=== PATIENT | male | born 1940 | race Caucasian/White ===

== ENCOUNTER 2018-11-10 14:25 | Inpatient (IN) ==
[2018-11-10] MEDS ORDERED: DUONEB (A & A) INH ONE (15:06)
--- NOTE | 2018-11-10 15:20 | Diag Imaging Result Doc PS360 ---
EXAM: CHEST-1 VIEW - 11/10/2018 HISTORY: SEPSIS TECHNIQUE: Portable chest COMPARISON: 01/08/2012 FINDINGS: Heart size appears within normal limits. The projection is somewhat lordotic. There is questionable infiltrate at the medial left base. The remainder of the lungs appear essentially clear. There is no pleural effusion or pneumothorax identified. IMPRESSION: Questionable infiltrate at medial left base. Electronically signed by Elan William 11/10/2018 3:18 PM
[2018-11-10 16:00] LABS: BASO# 0.01 X1000 (0.0-0.2); BASO% 0.1 % (0.0-0.8); HEMATOCRIT 38.1 % (42.0-52.0); HEMOGLOBIN 12.8 g/dL (14.0-18.0); LYMPH# 0.75 X1000 (1.2-3.4); LYMPH% 10.8 % (20.5-51.1); MCH 31.2 PG (27-31); MCHC 33.6 g/dL (33-37); MCV 92.9 FL (81-99); MONO# 0.61 X1000 (0.11-0.59); MONO% 8.8 % (1.7-9.3); MPV 10.6 FL (7.4-10.4); NEUT# 5.55 X1000 (1.4-6.5); NEUT% 80.3 % (42.2-75.2); PLT 162 X1000 (130-400); RDW 13.5 % (11.5-14.5); WBC 6.92 X1000 (4.8-10.8)
[2018-11-10] MEDS ORDERED: ROCEPHIN 1 GM in NS 50 ML IV ONE (16:07)
[2018-11-10 16:30] LABS: ALB/GLOB RATIO 1.3; ALBUMIN 3.5 g/dL (3.5-5.0); CALCIUM 8.2 mg/dL (8.8-10.2); CREATININE 1.3 mg/dL (0.7-1.2); MAGNESIUM 1.9 mg/dL (1.5-2.7); POTASSIUM 4.5 mmol/L (3.5-5.1); TOTAL BILIRUBIN 1.51 mg/dL (0.20-1.00); TOTAL PROTEIN 6.1 g/dL (6.3-8.3)
[2018-11-10 16:45] LABS: INR 4.69; PROTIME 47.3 Seconds (11.0-16.0)
[2018-11-10 17:51] LABS: URINE SOURCE CLEAN CATCH
[2018-11-10] MEDS ORDERED: TYLENOL PO PRN (18:00)
[2018-11-10] MEDS ORDERED: ULTRAM PO PRN (18:00)
[2018-11-10] MEDS ORDERED: MELATONIN PO PRN (18:00)
[2018-11-10 18:02] LABS: BILIRUBIN URINE SMALL (NEGATIVE); BLOOD URINE NEGATIVE (NEGATIVE); COLOR YELLOW; GLUCOSE URINE TRACE mg/dL (NEGATIVE); KETONE URINE TRACE mg/dL (NEGATIVE); LEUKOCYTES URINE NEGATIVE (NEGATIVE); NITRITE URINE NEGATIVE (NEGATIVE); PH URINE 5.5; PROTEIN URINE 200 mg/dL (NEGATIVE); TURBIDITY URINE HAZY (CLEAR); UROBILINOGEN URINE 4 mg/dL (NORMAL)
[2018-11-10 18:12] LABS: URINE BACTERIA NEGATIVE /HPF; URINE RBC <10 /HPF (<10); URINE WBC <10 /HPF (<10)
[2018-11-10 18:14] LABS: UR EPITHELIAL CELLS <10 /HPF (<10)
[2018-11-10 18:20] LABS: URINE CASTS GRANULAR PRESENT; URINE CRYSTALS NONE SEEN; URINE YEAST NONE SEEN
--- NOTE | 2018-11-10 18:41 | HISTORY AND PHYSICAL ---
PRIMARY CARE PHYSICIAN: Dr. Thomas Hagen. CHIEF COMPLAINT: Cough, congestion, and shortness of breath. HISTORY OF PRESENT ILLNESS: A 78-year-old white male with a complicated past medical history presents for evaluation of above-mentioned symptoms. Pertinent history of present illness began in mid September. At that time, patient developed acute onset cough and congestion. He attempted Mucinex and "cold and flu" [id number]-uhm-[id number] medications with modest improvement. Because of persistent symptoms and associated shortness of breath and wheezing, patient was seen in my office on 10/22/2018. At that time, patient was diagnosed with an upper respiratory tract infection with acute bronchospasm. He was treated with levofloxacin therapy and Medrol Dosepak. The patient states he did reasonably well while on medications. He achieved significant improvement, although not resolution of symptoms. The patient states after completing therapy, he did well until Sunday. At that time, he developed a return of significant symptoms. At that time, he complained of a cough productive of a purulent sputum, congestion, shortness of breath, wheezing, chills, and fever to 101. Patient again attempted Mucinex DM and an [id number]-[id number] "cold and sinus" medication without improvement. Because of his persistent symptoms, he presented to the emergency department this afternoon. Upon arrival, full evaluation was pursued. The patient was found to be hypoxic on room air with oxygen saturation in the 80s. Chest x-ray suggested a questionable infiltrate at the medial left base. Patient will be admitted to the hospital for full evaluation and management of community-acquired pneumonia in an immunocompromised host. PAST MEDICAL HISTORY: 1. Abnormal electrocardiogram with longstanding first-degree AV block. 2. Chronic mild anemia with a slight elevation of MCV. 3. Mild carotid artery disease. 4. Factor V Leiden deficiency treated with lifelong Coumadin. 5. Diverticulosis. 6. Diabetes. 7. Longstanding lower extremity edema treated with as-needed Lasix. 8. Hypertension. 9. Hypertriglyceridemia. 10. Nonalcoholic fatty liver disease. 11. Hyperlipidemia. 12. Long-term anticoagulant secondary to factor V Leiden deficiency. 13. Obstructive sleep apnea. 14. Overweight. 15. History of a pericardial effusion in 2009 which resolved spontaneously. 16. Hypogonadism. 17. Rheumatoid arthritis treated with Humira and methotrexate. 18. Insomnia. 19. History of a deep venous thrombosis. CURRENT MEDICATIONS: 1. Coenzyme Q10 100 mg on Sunday, Sunday, and Sunday. 2. Coumadin 5 mg on Sunday, , and Sunday and 10 mg on Sunday, Sunday, Sunday, and Sunday evenings. 3. Crestor 40 mg at bedtime. 4. Folic acid 1 mg daily. 5. Humira weekly per Dr. Pena. 6. Lasix 40 mg 1/2 to 1 tablet daily as needed. 7. Losartan 100 mg daily. 8. Melatonin 5 mg at bedtime as needed. 9. Metformin ER 500 mg daily. 10. Methotrexate 2.5 mg 4 tablets on . 11. Multivitamin on Sunday, Sunday, and Sunday. 12. Naproxen 220 mg twice daily as needed. 13. Tramadol 50 mg every 6 hours as needed. 14. Vitamin B12 1000 mg twice weekly. ALLERGIES: The patient states he is allergic to fish which causes shortness of breath and asthma and lisinopril which causes a cough. SOCIAL HISTORY: The patient is a former smoker having smoked less than 1 pack per day for 16 years. He stopped in 1975. He has approximately 3 alcoholic drinks per week. He denies illicit drug use. He is retired from banking but continues to work in [employer]. He enjoys golf and tennis. He exercises intermittently. FAMILY HISTORY: Patient's father passed at age 62 secondary to complications of pancreatic cancer. Patient's mother passed at age 87 secondary to complications of pancreatic cancer. REVIEW OF SYSTEMS: A 12 point review of systems was performed. Pertinent positives and negatives are noted in history present illness. PHYSICAL EXAMINATION: VITAL SIGNS: Temperature 98.4 degrees, heart rate 81 to 121, respirations 14 to 27, blood pressure 111 to 133 over 59 to 66. GENERAL: Well nourished, well developed, no acute distress. HEENT: Normocephalic, atraumatic. Pupils equal, round, reactive to light. Extraocular muscles intact. Sclerae anicteric. [place] conjunctivae. Oral and nasopharynx clear without exudate. NECK: Supple. No lymphadenopathy. No thyromegaly. No bruits auscultated. CARDIOVASCULAR: Regular rate and rhythm. No significant murmurs, rubs, or gallops. PULMONARY: Rhonchi and wheezing throughout bilateral lung vivar, worse at the bases. Compromised air movement. ABDOMEN: Soft, nontender, nondistended. Positive bowel sounds. EXTREMITIES: Moves all extremities well. No significant clubbing or cyanosis. Trace lower extremity edema bilaterally. NEUROLOGIC: Cranial nerves 2-12 grossly intact. Motor and sensory grossly intact. PSYCHOLOGIC: Appropriate. LABORATORY DATA: White blood cell count 6.92, hemoglobin 12.8, hematocrit 38.1, platelet count 162,000. PT 47.3, INR is 4.69, PTT is 93.0. Sodium 132, potassium 4.3, chloride 98, bicarb 24, BUN 17, creatinine 1.3, glucose 188, calcium 8.2, magnesium 1.9, total bilirubin 1.51, total protein 6.1, albumin 3.5, alkaline phosphatase 55, AST 19, ALT 17, CK total 138, troponin less than 0.010. Chest x-ray revealed a questionable infiltrate at the medial left base. ASSESSMENT AND PLAN: A 78-year-old white male with a complicated past medical history as noted presents for evaluation of cough, congestion, and shortness of breath. Chest x-ray confirms an underlying pneumonia. In the setting of an immunocompromised host being treated for rheumatoid arthritis with methotrexate and Humira, aggressive intervention is deemed warranted. The patient will be admitted to the hospital for full evaluation and management of this condition. 1. Admit to General Medicine. 2. Community acquired pneumonia-we will check a sputum culture and blood cultures. We will initiate Rocephin and doxycycline therapy. We will encourage incentive spirometry and aspiration precautions. We will treat patient's bronchospasm as described below. 3. Acute bronchospasm-this is compounding his shortness of breath. This likely is a consequence of his underlying pneumonia. Patient will be treated with DuoNeb every 4 hours while awake. We will initiate IV steroids. We will follow this closely as well. 4. Hypoxemia-as above, this is likely a consequence of above diagnoses. We will continue oxygen per protocol. I anticipate patient will rapidly reverse this. 5. Anticoagulation-patient is supratherapeutic. We will hold Coumadin for now. We will recheck a PT and INR in the a.m. 6. Diabetes-the patient is currently being treated with metformin therapy. With the addition of steroids, patient's blood sugars will likely increase. We will start the patient on sliding scale insulin. We will follow this as well. 7. Hypertension-we will continue patient on his home regimen. 8. Hyperlipidemia-we will continue patient on Crestor therapy. 9. Elevated bilirubin-I suspect this is reactive. In the setting of a family history of pancreatic cancer, this will need to be repeated and followed up. 10. Rheumatoid arthritis-the patient is treated with methotrexate and Humira as an outpatient. We will remain aware. His symptoms are currently controlled. 11. Fluid, electrolytes, nutrition. We will monitor electrolytes. Saline lock IV. Diabetic diet. 12. Prophylaxis. The patient is supratherapeutic on Coumadin. cc: Thomas Hagen MD
[2018-11-10] MEDS: DOXYCYCLINE 100 MG in NS 250 ML IV SCH (18:48)
[2018-11-10] MEDS: SOLU-MEDROL IV SCH (18:48)
[2018-11-10] MEDS: DUONEB (A & A) INH SCH ×2 (19:35→23:10)
[2018-11-10] MEDS ORDERED: PATIENT'S OWN MED OPH SCH ×2 (21:00)
--- NOTE | 2018-11-10 21:04 | PROVIDER DOCUMENTATION ---
This chart was entered by Lorena Ramos Scribe, acting as scribe for Patel Do MD. HPI-Respiratory General - General Chief Complaint: Cough Stated Complaint: CHEST CONGESTION/SOB Time Seen by Provider: 11/10/18 14:40 Source: patient Allergies/Adverse Reactions: Patient Allergies Allergy/AdvReac Type Severity Reaction Status Date / Time Fish Containing Products Allergy ANAPHYLAXIS Verified 11/10/18 16:01 fish derived Allergy ANAPHYLAXIS Verified 11/10/18 16:01 fish oil Allergy ANAPHYLAXIS Verified 11/10/18 16:01 Home Medications: Home Medication List Medication Instructions Recorded Confirmed Last Taken Type Adalimumab [Humira Pen] 40 mg IJ DIRECTED 11/10/18 11/10/18 11/09/18 History Losartan Potassium 100 mg PO DAILY 11/10/18 11/10/18 11/09/18 History Metformin E.r. [Glucophage Xr] 500 mg PO DAILY 11/10/18 11/10/18 11/09/18 History Methotrexate 4 tab PO DIRECTED 11/10/18 11/10/18 11/09/18 History Moxifloxacin HCl [Moxifloxacin] 1 drp OPH BID 11/10/18 11/10/18 11/09/18 History Nepafenac [Ilevro] 1 drp OPH BID 11/10/18 11/10/18 11/10/18 History Rosuvastatin Calcium 40 mg PO HS 11/10/18 11/10/18 11/09/18 History Tramadol [Ultram] 50 mg PO Q6H PRN PRN 11/10/18 11/10/18 11/10/18 History Warfarin [Coumadin] 5 mg PO DIRECTED 11/10/18 11/10/18 11/08/18 History Warfarin [Coumadin] 10 mg PO DIRECTED 11/10/18 11/10/18 11/09/18 History - History of Present Illness-Resp Nature of Presenting Problem: 78 y/o male presents to ED with SOB, green productive cough, and chest tightness onset 1 week ago. Pt reports he saw PCP and has taken the prescribed zithromax without relief from his symptoms. Pt is alert and oriented. Quality of Pain: reports: tightness Severity in ED: reports: mild Onset/Duration: reports: 1 week ago Timing: reports: still present Context: reports: other Exposure: reports: unknown cause Cough Quality/Degree: reports: productive cough Episode Frequency: no prior episodes Current Respiratory Medication Therapy: Initiated see nurses note Modifying Factors: improves with: nothing Associated Symptoms: reports: chest pain/soreness, cough, shortness of breath, short of breath Similar Symptoms Previously?: No Recently seen or treated by another doctor?: No Review of Systems - Adult - REVIEW OF SYSTEMS - ADULT Constitutional: reports: no symptoms reported Ears, Nose, Mouth & Throat: reports: no symptoms reported Cardiovascular: reports: no symptoms reported Respiratory: reports: see HPI Gastrointestinal: reports: no symptoms reported Genitourinary: reports: no symptoms reported Musculoskeletal: reports: no symptoms reported Past History - Adult - PAST MEDICAL HISTORY-ADULT Review of Records: reports: Old Records Reviewed, Nursing Assessment Review, Medications Reviewed Major Childhood Illnesses: reports: denies history - PRIOR SURGERIES/PROCEDURES Surgical/Procedure History: reports: none - IMMUNIZATION STATUS Childhood Immunizations: See Nurse Assessment Flu Vaccine: See Nurse Assessment - FAMILY HISTORY Family History: reviewed, not pertinent - SOCIAL HISTORY Smoking: non-smoker Substance Use: none/never Alcohol Use Frequency: never Living Situation: family Physical Exam-General - PHYSICAL EXAM-ADULT Initial Vital Signs Reviewed: Yes - CONSTITUTIONAL General Appearance: appears well, alert, mild distress - EYES Eyes: PERRL/EOMI - HEAD, EARS, NOSE, MOUTH & THROAT HENMT: normocephalic/atraumatic, moist mucous membranes, normal ENT inspection - NECK Neck: non-tender, full range of motion - RESPIRATORY Respiratory: chest non-tender, normal breath sounds, wheezing (expiratory wheezing bilaterally), increased rate (mild), other (coughing during exam) - CARDIOVASCULAR Cardiovascular: tachycardia - GASTROINTESTINAL (ABDOMEN) Abdominal Exam: normal bowel sounds, non tender, soft - MUSCULOSKELETAL Back Exam: normal inspection, no CVA tenderness Extremity: normal range of motion, non-tender, normal gait - SKIN Integumentary: normal color, warm/dry - NEUROLOGIC Neurologic: grossly normal - PSYCHIATRIC Psych/Mental Status: normal thought content, normal thought process Progress - PLAN OF CARE/RESULTS Progress/Plan/Lab Results: Vital Signs - 8 hr 11/10/18 14:31 11/10/18 14:44 11/10/18 14:46 Temperature 98.4 F Pulse Rate 121 H 105 H Respiratory Rate 22 17 Blood Pressure 111/59 133/66 O2 Sat by Pulse Oximetry 86 L 90 L 91 L 11/10/18 14:50 11/10/18 15:00 11/10/18 15:10 Temperature Pulse Rate 102 H 98 H 98 H Respiratory Rate 18 24 14 Blood Pressure O2 Sat by Pulse Oximetry 91 L 92 L 93 L 11/10/18 15:20 11/10/18 15:30 11/10/18 15:40 Temperature Pulse Rate 101 H 83 88 Respiratory Rate 27 H 13 21 Blood Pressure O2 Sat by Pulse Oximetry 92 L 92 L 89 L 11/10/18 15:47 11/10/18 15:50 11/10/18 16:00 Temperature Pulse Rate 94 H 89 81 Respiratory Rate 18 19 22 Blood Pressure O2 Sat by Pulse Oximetry 92 L 97 91 L 11/10/18 16:10 11/10/18 16:20 Temperature Pulse Rate 88 90 Respiratory Rate 20 14 Blood Pressure O2 Sat by Pulse Oximetry 92 L 92 L Laboratory Results - last 24 hr 11/10/18 11/10/18 11/10/18 15:35 15:35 15:35 WBC 6.92 RBC 4.10 L Hgb 12.8 L Hct 38.1 L MCV 92.9 MCH 31.2 H MCHC 33.6 RDW Std Deviation 13.5 Plt Count 162 MPV 10.6 H Immature Gran % (Auto) 0.0 Neut % (Auto) 80.3 H Lymph % (Auto) 10.8 L [place] % (Auto) 8.8 Eos % (Auto) 0.0 Baso % (Auto) 0.1 Immature Gran # (Auto) 0.00 Neut # (Auto) 5.55 Lymph # (Auto) 0.75 L [place] # (Auto) 0.61 H Eos # (Auto) 0.00 Baso # (Auto) 0.01 PT 47.3 H INR 4.69 PTT (Actin FS) 93.0 H Sodium 132 L Potassium 4.5 Chloride 98 Carbon Dioxide 24 L Anion Gap 10 BUN 17 Creatinine 1.3 H Estimated GFR/1.73 m2 54 BUN/Creatinine Ratio 13 Glucose 188 H Calculated Osmolality 271 Calcium 8.2 L Magnesium 1.9 Total Bilirubin 1.51 H AST 19 ALT 17 Alkaline Phosphatase 55 Creatine Kinase 138 Troponin T Total Protein 6.1 L Albumin 3.5 Globulin 2.6 Albumin/Globulin Ratio 1.3 Plasma Lactate 11/10/18 11/10/18 15:35 15:35 WBC RBC Hgb Hct MCV MCH MCHC RDW Std Deviation Plt Count MPV Immature Gran % (Auto) Neut % (Auto) Lymph % (Auto) [place] % (Auto) Eos % (Auto) Baso % (Auto) Immature Gran # (Auto) Neut # (Auto) Lymph # (Auto) [place] # (Auto) Eos # (Auto) Baso # (Auto) PT INR PTT (Actin FS) Sodium Potassium Chloride Carbon Dioxide Anion Gap BUN Creatinine Estimated GFR/1.73 m2 BUN/Creatinine Ratio Glucose Calculated Osmolality Calcium Magnesium Total Bilirubin AST ALT Alkaline Phosphatase Creatine Kinase Troponin T < 0.010 Total Protein Albumin Globulin Albumin/Globulin Ratio Plasma Lactate 2.1 Orders Category Date Time Status Admit - [facility] Routine AdmDCTranf 11/10/18 17:20 Active Cardiac Monitoring DIRECTED Care 11/10/18 14:48 Active IV Insertion ORDERED Care 11/10/18 14:48 Completed Notify MD of + Sepsis Screen Q 4-HR ASSESS Care 11/10/18 14:48 Active Notify Physician As Ordered Care 11/10/18 14:48 Active CHEST-1 VIEW [RAD] Stat Exams 11/10/18 14:48 Completed BLOOD CULTURE [BLDCUL] Stat Lab 11/10/18 15:35 Results CBC WITH DIFF [HEME] Stat Lab 11/10/18 15:35 Completed CK PROFILE [SP CHEM] Stat Lab 11/10/18 15:35 Completed COMPREHENSIVE METABOLIC PANEL [CHEM] Stat Lab 11/10/18 15:35 Completed LACTATE, PLASMA [CHEM] Lab 11/10/18 15:35 Completed LACTATE, PLASMA [CHEM] Lab 11/10/18 18:18 Completed LACTATE, PLASMA [CHEM] Lab 11/10/18 21:00 Ordered MAGNESIUM [CHEM] Stat Lab 11/10/18 15:35 Completed PROTIME WITH INR [COAG] Stat Lab 11/10/18 15:35 Completed PTT [COAG] Stat Lab 11/10/18 15:35 Completed TROPONIN T Stat Lab 11/10/18 15:35 Completed URINALYSIS W/POSS RFLX CULT [URINALYSIS] Stat Lab 11/10/18 17:45 Completed Albuterol 2.5MG/Ipratrop 0.5MG [Duoneb (A & A)] Med 11/10/18 15:06 Discontinued 6 ml INH NOW ONE CefTRIAXONE [Rocephin] 1 gm Med 11/10/18 16:07 Discontinued 0.9% Sodium Chloride Inj [Ns] 50 ml IV NOW Aerosol Treatments Routine Oth 11/10/18 15:06 Completed Aerosol Treatments Stat Oth 11/10/18 15:06 Completed Oxygen Device Stat Ot 11/10/18 14:48 Completed Transfer/Admit Order [TRANSFER] Routine Transfer 11/10/18 17:23 Completed PNEUMONIA WITH HYPOXIA FAILED OUTPATIENT TX, WILL ADMIT Result Diagrams: 11/10/18 15:35 11/10/18 15:35 - EKG 1 Time of EKG reading by physician:: 14:49 EKG Read and Signed by:: Patel Do EKG Interpretation (*Must complete 3 of following elements*): Abnormal Rate: 101 Rhythm: Sinus tach [place]: normal QRS: normal [place] Interval: normal ST Wave: normal - XRAY 1 XRAY Study: Chest Impression: Abnormal ([facility] [address] [facility], [address], [place] [address] Department of Imaging Patient: MARIBEL TENA Date: 11/10/18#: [id number] : 1940DM Status: PRE ERAcct#: [id number] Age/Sex: 78/MRoom/Bed: Loc: ED Ordering Physician: Wesley Nunn MD Family Physician: Thomas Hagen MD Reason for Procedure: SEPSIS Signed EXAM: CHEST-1 VIEW - 11/10/2018 HISTORY: SEPSIS TECHNIQUE: Portable chest COMPARISON: 01/08/2012 FINDINGS: Heart size appears within normal limits. The projection is somewhat lordotic. There is questionable infiltrate at the medial left base. The remainder of the lungs appear essentially clear. There is no pleural effusion or pneumothorax identified. IMPRESSION: Questionable infiltrate at medial left base. Electronically signed by Elan William 11/10/2018 3:18 PM 11/10/18 1518 Interpreting Physician: Elan William MD Dictated Date/Time: 11/10/18 1516 cc: Wesley Nunn MD; Thomas Hagen MD) - CONSULTS/PCP/HOSPITALIST Notification #1 *Consult/PCP/Hospitalist*: Dr. Hagen Time Discussed: 17:14 Reason/Comments: Pneumonia Consult Disposition: Admit Departure - Departure Date of Disposition Decision: 11/10/18 Time of Disposition Decision: 17:15 DIAGNOSIS: Pneumonia Qualifiers: Pneumonia type: due to unspecified organism Laterality: left Lung location: lower lobe of lung Qualified Code(s): J18.1 - Lobar pneumonia, unspecified organism Disposition: ADMITTED INPATIENT 09 Certified Medical Emergency: Emergent Condition: Stable - Critical Care Note This patient required my direct & personal management of CC.: No Attestation - Physician/ SONG Attestation Patient care was provided by Advanced Practice Provider:: No The physician spent face to face time with patient:: Yes Advanced Practice Provider documentation review:: Supervising physician onsite and consulted in the evaluation and care of this patient. The physician did have a face to face encounter with the patient. This chart was documented by the indicated scribe, (Lorena Ramos Scribe) and accurately reflects the services I performed and decisions made by me, Patel Kline MD, as attested by the provider's signature.
[2018-11-10] MEDS: HUMALOG SUBQ SCH (21:50)
[2018-11-10] MEDS: CRESTOR PO SCH (21:54)
[2018-11-11] MEDS: SOLU-MEDROL IV SCH ×2 (06:36→18:26)
[2018-11-11] MEDS: DOXYCYCLINE 100 MG in NS 250 ML IV SCH ×2 (06:36→18:23)
[2018-11-11] MEDS: HUMALOG SUBQ SCH ×5 (06:52→21:47)
[2018-11-11 07:13] LABS: INR 4.97; PROTIME 49.5 Seconds (11.0-16.0)
[2018-11-11] MEDS: DUONEB (A & A) INH SCH ×5 (07:47→23:10)
--- NOTE | 2018-11-11 08:10 | EKG Report ---
Test Performed on : 11/10/2018 2:48:59 PM Test Reason : ED. NO EKG ORDER FOR MUSE Blood Pressure : / mmHG Vent. Rate : 101 BPM Atrial Rate : 101 BPM P-R Int : 204 ms QRS Dur : 084 ms QT Int : 370 ms P-R-T Axes : 061 -09 038 degrees QTc Int : 479 ms Sinus tachycardia. Inferior infarct , age undetermined Abnormal ECG When compared with ECG of 08-JAN-2012 20:00, premature ventricular complexes. are no longer present Inferior infarct is now present Unconfirmed Result
[2018-11-11] MEDS: COZAAR PO SCH (08:59)
[2018-11-11] MEDS: GLUCOPHAGE XR PO SCH (08:59)
[2018-11-11] MEDS: FOLIC ACID PO SCH (08:59)
[2018-11-11] MEDS: MUCINEX DM PO SCH ×2 (10:23→21:47)
[2018-11-11] MEDS: ROCEPHIN 1 GM in NS 50 ML IV SCH ×2 (14:47→15:30)
[2018-11-11] MEDS: CRESTOR PO SCH (21:47)
[2018-11-12 06:33] LABS: INR 3.47; PROTIME 37.3 Seconds (11.0-16.0)
[2018-11-12] MEDS: DOXYCYCLINE 100 MG in NS 250 ML IV SCH ×2 (06:38→18:18)
[2018-11-12] MEDS: SOLU-MEDROL IV SCH ×2 (06:38→18:18)
[2018-11-12 06:49] LABS: HEMATOCRIT 35.9 % (42.0-52.0); HEMOGLOBIN 12.3 g/dL (14.0-18.0); LYMPH# 0.46 X1000 (1.2-3.4); LYMPH% 5.5 % (20.5-51.1); MCH 31.2 PG (27-31); MCHC 34.3 g/dL (33-37); MCV 91.1 FL (81-99); MONO# 0.12 X1000 (0.11-0.59); MONO% 1.4 % (1.7-9.3); MPV 10.8 FL (7.4-10.4); NEUT# 7.84 X1000 (1.4-6.5); NEUT% 93.1 % (42.2-75.2); PLT 220 X1000 (130-400); RBC 3.94 XMIL (4.7-6.1); RDW 13.1 % (11.5-14.5); WBC 8.42 X1000 (4.8-10.8)
[2018-11-12] MEDS: HUMALOG SUBQ SCH ×3 (06:57→16:55)
[2018-11-12 07:10] LABS: ALB/GLOB RATIO 0.8; ALBUMIN 2.9 g/dL (3.5-5.0); CALCIUM 8.7 mg/dL (8.8-10.2); CREATININE 1.5 mg/dL (0.7-1.2); POTASSIUM 4.5 mmol/L (3.5-5.1); TOTAL BILIRUBIN 0.5 mg/dL (0.20-1.00); TOTAL PROTEIN 6.4 g/dL (6.3-8.3)
[2018-11-12 07:22] LABS: BANDS 4 % (0-1); LYMPHS 8 % (21-51); MONO 1 % (1-9); SEGS 87 % (42-75)
[2018-11-12] MEDS: DUONEB (A & A) INH SCH ×3 (07:52→15:49)
[2018-11-12] MEDS: MUCINEX DM PO SCH (09:46)
[2018-11-12] MEDS: GLUCOPHAGE XR PO SCH (09:46)
[2018-11-12] MEDS: COZAAR PO SCH (09:46)
[2018-11-12] MEDS: FOLIC ACID PO SCH (09:46)
--- NOTE | 2018-11-12 10:10 | Diag Imaging Result Doc PS360 ---
CHEST-2 VIEWS - 11/12/2018 INDICATION: pneumonia COMPARISON: 11/10/2018 FINDINGS: There has been clearance in the right lower lobe, with much better visualization of the right hemidiaphragm. There is also improved visualization of the left hemidiaphragm suggesting improved aeration of the left lower lobe. Otherwise persistent ill-defined interstitial markings in the lung bases bilaterally. Heart size remains normal. No pneumothorax or pleural effusion. IMPRESSION: Improved aeration of both lower lobes. Persistent ill-defined interstitial infiltrates in the lung bases bilaterally, nonspecific. Electronically signed by Steven Schaefer 11/12/2018 10:08 AM
[2018-11-12] MEDS: ROCEPHIN 1 GM in NS 50 ML IV SCH (16:55)
[2018-11-12] MEDS ORDERED: CHLORASEPTIC SPRAY MT PRN (19:16)
[2018-11-12 20:21] VITALS: BP 168/86
--- NOTE | 2018-11-13 16:49 | PROGRESS NOTE ---
DATE: 11/11/2018 SUBJECTIVE: The patient was admitted yesterday with pneumonia and associated bronchospasm. The patient was started on broad-spectrum antibiotics, IV steroids, bronchodilators, and oxygen per protocol. Since admission, patient notes improvement, although not resolution of his symptoms. Upon my arrival this morning, patient was resting in bed. He continued to require oxygen supplementation. Throughout the day, patient states he was more active. P.o. intake is adequate. Blood sugars have noted to be elevated, largely secondary to steroid use. This evening, patient had titrated off of oxygen therapy per protocol. He continued to feel improvement in his overall condition. He denied fevers, chills, nausea, vomiting, or chest discomfort. OBJECTIVE: Vital Signs: T-max 100.2, heart rate 79-104, respirations 16-20, blood pressure 115- 148 over 52-59. General: Well nourished, well developed, no acute distress. Cardiovascular: Regular rate and rhythm. No significant murmurs, rubs, or gallops. Pulmonary: Crackles at bilateral bases. Decreasing bronchospasm. Abdomen: Soft, nontender, nondistended. Positive bowel sounds. Extremities: Moves all extremities well. No significant clubbing or cyanosis. Trace lower extremity edema bilaterally. Dermatologic: Evaluation reveals no evidence of rash. LABORATORY DATA: PT 49.5, INR is 4.97. ASSESSMENT AND PLAN: 1. Community acquired pneumonia-we will continue to follow patient's sputum and blood cultures. We will continue Rocephin and doxycycline therapy. We will encourage incentive spirometry and aspiration precautions. We will treat the patient's hypoxemia and bronchospasms as described below. 2. Acute bronchospasms-patient has achieved improvement, although not resolution. In the setting of increasing blood sugars, we will begin a steroid taper. We will decrease Solu-Medrol to 40 mg q.12 hours. We will continue DuoNeb every 4 hours while awake. 3. Hypoxemia-as above, patient has titrated off of oxygen therapy per protocol. We will continue aggressive management of bronchospasm and community-acquired pneumonia as described above. 4. Anticoagulation-patient's INR remains supratherapeutic. We will continue to hold Coumadin therapy. 5. Diabetes-patient is treated with metformin as an outpatient. With the addition of IV steroids, blood sugars have increased considerably. We will continue sliding scale insulin. We will begin a steroid taper as described above. 6. Hypertension-we will continue patient on home regimen. Blood pressure is reasonably controlled. 7. Hyperlipidemia-we will continue Crestor therapy. 8. Elevated bilirubin-this was diagnosed upon admission. We will recheck in the a.m. 9. Rheumatoid arthritis-patient's methotrexate and Humira will be held while hospitalized. DISPOSITION: At this point, patient continues to require retirement care in a hospital setting. We will plan discharge home once appropriate. cc: Thomas Hagen MD
--- NOTE | 2018-11-15 12:21 | DISCHARGE SUMMARY ---
ADMISSION DATE: 11/10/2018 DISCHARGE DATE: 11/12/2018 ADMITTING DIAGNOSES: 1. Cough. 2. Congestion. 3. Shortness of breath. DISCHARGE DIAGNOSES: 1. Community acquired pneumonia. 2. Acute bronchospasm, improving. 3. Hypoxemia, resolved. 4. Supratherapeutic INR, present on arrival. 5. Diabetes, present on arrival. 6. Hypertension, present on arrival. 7. Hyperlipidemia, present on arrival. 8. Rheumatoid arthritis, present on arrival. CONSULTATIONS: None. PROCEDURES: 1. A chest x-ray was performed on 11/10/2018 which revealed questionable infiltrate at the medial left base. 2. Chest x-ray was performed on 11/12/2018 which revealed improved aeration of both lower lobes. Persistent ill-defined interstitial infiltrates in the lung bases bilaterally, nonspecific. HISTORY AND PHYSICAL EXAMINATION: See admit note. PHYSICAL EXAMINATION PRIOR TO DISCHARGE: VITAL SIGNS: Temperature is 98.1, heart rate 96, respirations 18, blood pressure is 147/84. GENERAL: Well nourished, well developed, in no acute distress. CARDIOVASCULAR: Regular rate and rhythm. No significant murmurs, rubs or gallops. PULMONARY: Crackles at bilateral bases. Adequate air movement. Decreased wheezing. ABDOMEN: Soft, nontender, nondistended. Positive bowel sounds. EXTREMITIES: Moves all extremities well. No significant cyanosis, clubbing or edema. DERMATOLOGIC: No evidence of rash. DIAGNOSTIC DATA: Prior to discharge, white blood cell count is 8.42, hemoglobin 12.3, hematocrit 35.9, platelet count is 220,000. PT is 37.3. INR is 3.47. Sodium is 133, potassium 4.5, chloride 101, bicarb 21, BUN is 39, creatinine 1.5, glucose 301, calcium 8.7, magnesium 2.3, total bilirubin 0.50, total protein 6.4, albumin 2.9, alkaline phosphatase 61, AST is 46, ALT is 26. HOSPITAL COURSE: The patient was admitted as per history and physical examination. Hospital course per condition is as follows: 1. Community acquired pneumonia. Upon admission, the patient was noted to have significant cough, congestion, and wheezing. Chest x-ray was consistent with a community acquired pneumonia. The patient was immediately placed on broad spectrum antibiotics in the form of Rocephin and doxycycline therapy. Incentive spirometry and aspiration precautions were encouraged. Bronchospasm was treated as described below. While hospitalized, the patient achieved rapid improvement. At the time of discharge, the patient noted significant improvement in his overall condition. The patient will be discharged home with 7 additional days of Cefdinir and doxycycline therapy. 2. Acute bronchospasm. The patient was noted to have considerable bronchospasm upon admission. With treatment of his underlying pneumonia and steroids and DuoNeb, symptoms improved rapidly. At time of discharge, he was wheeze free. The patient will be discharged with a steroid taper and as needed ProAir HFA. We will treat pneumonia as described above. 3. Hypoxemia. Upon admission, the patient was noted to be hypoxic. With treatment of his pneumonia, his oxygenation improved while hospitalized. At the time of discharge, he did not require supplementation. 4. Anticoagulation. Unfortunately, the patient remained supratherapeutic while hospitalized. Coumadin has been held. He will resume therapy on Sunday night. We will plan to see the patient on or Sunday and recheck INR at that time. 5. Diabetes. The patient is treated with metformin therapy. This was continued while hospitalized. With the addition of steroids, blood sugars increased. The patient was treated with sliding scale insulin. We will continue to follow the patient very closely as an outpatient, as his blood sugars may remain elevated even with transitioning to oral steroids. 6. Hypertension. The patient was continued on his home regimen while hospitalized. Blood pressure remained reasonably controlled. 7. Hyperlipidemia. The patient was continued on Crestor therapy. 8. Rheumatoid arthritis. The patient is currently being treated with methotrexate immunotherapy. I have asked the patient to hold this until he has completely resolved his underlying pneumonia. He will then follow up with Dr. Rivero. Symptoms are controlled. DISCHARGE CONDITION: Stable. DISPOSITION: Discharged to home. MEDICATIONS: 1. Folic acid 1 mg daily. 2. Melatonin 5 mg at bedtime as needed. 3. Omnicef 300 mg every 12 hours for 7 days. 4. Prednisone 40 mg day 1, decreasing 5 mg daily until off. 5. Tylenol 650 mg every 4 hours as needed. 6. Doxycycline 100 mg twice daily. 7. Mucinex DM twice daily. 8. ProAir HFA 1 to 2 puffs every 4 to 6 hours as needed. 9. Losartan 100 mg daily. 10.Metformin ER 500 mg daily. 11.Rosuvastatin 40 mg at bedtime. 12.Tramadol 50 mg every 6 hours as needed. FOLLOWUP: The patient is to follow with me on or Sunday. cc: Thomas Hagen MD
== END 2018-11-12 21:02 | disposition home or self-care (01) | DRG 194 ==
LOC: ED 14:25 → 4N 17:42
PROVIDERS: ADMIT Internal Medicine; ATTEND Internal Medicine
CPT/HCPCS: 71010; 71020; 71045; 71046; 80053; 81001; 82550; 82948; 83605; 83735; 84484; 85025; 85610; 85730; 87040; 93005; 94640; 94761; 94799; 96365; 99285; A9270; J0696; J1815; J2920; J2930; J7050; XXXXX